=== PATIENT | female | born 1960 | race Caucasian/White ===

== ENCOUNTER 2021-09-30 11:48 | Outpatient (CLI) | payer OTHER | END 2021-09-30 11:49 | disposition home or self-care (01) | LOC: CSHRAD 11:48 | PROVIDERS: ATTEND Psychiatry & Neurology Neurology | DX: M25.552 Pain in left hip (principal); M54.50 Low back pain, unspecified; M47.816 Spondylosis without myelopathy or radiculopathy, lumbar region | CPT/HCPCS: 72100 ==

== ENCOUNTER 2023-06-09 13:49 | Outpatient (CLI) | payer OTHER | END 2023-06-09 13:50 | disposition home or self-care (01) | LOC: CSHCP 13:49 | PROVIDERS: ATTEND Internal Medicine | DX: R91.1 Solitary pulmonary nodule (principal); J44.9 Chronic obstructive pulmonary disease, unspecified | CPT/HCPCS: 94060; 94726; 94729; 94760 ==